=== PATIENT | male | born 1960 | race Two or more races ===

== ENCOUNTER 2020-04-16 10:07 | Day surgery (SDC) | payer OTHER ==
[~2020-04-16 10:07] MED LIST: COZAAR50 MG PO; TAMS0.4C PO
== END 2020-04-16 18:40 | disposition home or self-care (01) ==
LOC: CIR.AMB 10:07
PROVIDERS: ATTEND Urology
DX: N20.1 Calculus of ureter (principal); Z20.822 Contact with and (suspected) exposure to COVID-19

== ENCOUNTER 2020-04-22 09:20 | Outpatient (CLI) | payer OTHER | END 2020-04-22 09:26 | disposition home or self-care (01) | LOC: RAD 09:20 | PROVIDERS: ATTEND Urology | DX: N20.1 Calculus of ureter (principal) ==